=== PATIENT | male | born 1980 | race Caucasian/White ===

== ENCOUNTER 2017-01-27 14:51 | Emergency (ER) | payer SELFPAY ==
[~2017-01-27 14:51] MED LIST: Iopamidol 370 76% 100 ML VIAL ONE
[2017-01-27] MEDS ORDERED: Ondansetron HCl/PF 4 MG/2 ML Vial ONE (15:11)
[2017-01-27 15:23] LABS: #Basophils 0.1 thou/uL (0.0-0.2); #Eosinphils 0.1 thou/uL (0.0-0.7); #Lymphocytes 1.4 thou/uL (1.20-3.40); #Neutrophils 14.5 thou/uL (1.40-6.50); %Basophils 0.3 % (0.0-1.0); %Eosinophils 0.3 % (0.0-10.0); %Monocytes 5.6 % (0.0-10.0); %Neutrophils 85.7 % (42.0-75.0); Hemoglobin 15.4 g/dL (14.0-18.0); Mean Corpuscular HGB CONC 31.9 g/dL (32.0-36.0); Mean Corpuscular Hemoglobin 27.7 pg (27.0-31.0); Mean Corpuscular Volume 87.1 fl (80.0-94.0); Mean Platelet Volume 8.2 fL (7.4-10.4); Platelet Count 284 thou/uL (130-400); RBC Distribution Width 14.2 % (11.5-14.5); Red Blood Cell (RBC) Count 5.54 mill/uL (4.70-6.10)
[2017-01-27 15:26] LABS: Bilirubin Negative (Negative); Blood, Urine Trace (Negative); Clarity Clear (Clear); Glucose, Urine (Dipstick) 500 mg/dL (Negative); Leukocyte Negative (Negative); Nitrite Negative (Negative); Protein, Urine (Dipstick) Negative (Neg-Trace); Specific Gravity, Urine 1.015 (1.005-1.030); Urobilinogen 0.2 mg/dL (0.2-1.0); pH, Urine 5.5 (5.0-9.0)
[2017-01-27 15:38] LABS: ALT (SGPT) 22 U/L (8-55); AST (SGOT) 22 U/L (5-34); Albumin 3.9 g/dL (3.5-5.0); Alcohol Less than 10 mg/dL (Less than 10); Alkaline Phosphatase 97 U/L (40-150); Anion Gap 17 mmol/L (10-20); BUN (Urea Nitrogen) 11 mg/dL (8.9-20.6); Bilirubin, Total 0.2 mg/dL (0.2-1.2); Calc. Creatinine Clearance 0 mL/min (70-130); Calcium 8.9 mg/dL (7.8-10.44); Carbon Dioxide 22 mmol/L (22-29); Chloride 99 mmol/L (98-107); Estimated GFR-MDRD 60; Globulin 3.2 g/dL (2.4-3.5); Glucose 148 mg/dL (70-105); Potassium 3.6 mmol/L (3.5-5.1); Protein, Total 7.1 g/dL (6.0-8.3); Sodium 134 mmol/L (136-145)
[2017-01-27 15:38] LABS: RBC/HPF 0-3 HPF (0-3); WBC/HPF 0-3 HPF (0-3)
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
[2017-01-27] MEDS ORDERED: Fentanyl 100 MCG/2 ML VIAL ONE (16:18)
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
[2017-01-27] MEDS ORDERED: HYDROcodone/Acetaminophen 10/325 mg Tablet ONE (17:13)
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
[2017-01-27] MEDS ORDERED: Bacitracin Zinc 1 Packet ONE (17:32)
== END 2017-01-27 18:05 | disposition home or self-care (01) ==
LOC: NAV ERS 14:51
DX: S09.90XA Unspecified injury of head, initial encounter (principal); S62.307A Unspecified fracture of fifth metacarpal bone, left hand, initial encounter for closed fracture; S92.511A Displaced fracture of proximal phalanx of right lesser toe(s), initial encounter for closed fracture; S00.81XA Abrasion of other part of head, initial encounter; S51.802A Unspecified open wound of left forearm, initial encounter; V87.8XXA Person injured in other specified noncollision transport accidents involving motor vehicle (traffic), initial encounter
CPT/HCPCS: 29125; 70450; 71260; 72125; 74177; 80053; 80307; 81003; 81015; 85025; 96374; 96375; 96376; J2270; J2405; J3010